=== PATIENT | female | born 1960 | race Caucasian/White ===

== ENCOUNTER 2020-05-29 12:10 | Outpatient (CLI) | payer BC ==
--- NOTE | 2020-05-29 14:19 | RAD ---
LUMBAR SPINE THREE VIEWS: 05/29/20 There has been a prior fusion of the L5-S1 level with a synthetic disc in the intervening disc space. Fusion is done with screws both anteriorly and posteriorly. There also appears to be a synthetic dis c in place between L3 and L4. No vertebral fractures are seen. Spinal alignment is unremarkable. The abdominal gas pattern is normal. Clips are noted to the right of L2 which are probably from a prior o perative procedure. IMPRESSION: Old postop changes but no acute findings. POS: HOME
--- NOTE | 2020-05-29 14:21 | RAD ---
LEFT HIP TWO VIEWS: 05/29/20 No fracture or area of bony destruction was seen. The joint space is normal in width and the articula r surfaces are smooth. I am not impressed by any significant amount of arthritic change. The left SI joint is unremarkable. The adjacent pubic ring appears normal. IMPRESSION: No significant finding. POS: HOME
--- NOTE | 2020-05-29 14:22 | RAD ---
RIGHT HIP TWO VIEWS: 05/29/20 Comparison is made with the views of the left hp. No fracture or area of bony destruction was seen. T he joint space is symmetrical with respect to the left side. There is no significant arthritic change . The right SI joint appears normal. IMPRESSION: No acute findings. POS: HOME
== END 2020-05-29 12:11 | disposition home or self-care (01) ==
LOC: BURRAD 12:10
PROVIDERS: ATTEND Orthopaedic Surgery
DX: M54.5 Low back pain (principal); M25.559 Pain in unspecified hip; Z98.890 Other specified postprocedural states
CPT/HCPCS: 72100